=== PATIENT | male | born 1980 | race Caucasian/White ===

== ENCOUNTER 2017-11-15 14:50 | Day surgery (SDC) | payer OTHER ==
[2017-11-15] MEDS ORDERED: LR 1,000 ML IV ONE (15:26)
--- NOTE | 2017-11-15 16:05 | PDGENHP ---
History & Physical Chief Complaint: 37 year old male presents for evaluation of dysphagia History of Present Illness: 1 year hx of dysphagia to both solids and liquids. No heartburn currently. Not on PPI Pertinent Past, Social, Family History: PMHx; HSV. SoHx: Former smoker Relevant Physical Exam: HEENT: anicteric sclera. Cv: RRR +s1s2. lungs: CTAB. Abd: soft, nt, + BS Cardiorespiratory Assessment: ASA 2
[2017-11-15] MEDS ORDERED: PROPOFOL/EMULSION 500 MG/50 ML BOTTLE IV ONE (16:12)
[2017-11-15] MEDS ORDERED: ALBUTEROL 3 ML DEYVIAL IH PRN (16:14)
[2017-11-15] MEDS ORDERED: ONDANSETRON 4 MG/2 ML VIAL IVP PRN (16:14)
[2017-11-15] MEDS ORDERED: INDOMETHACIN 50 MG SUPP PR PRN (16:14)
[2017-11-15] MEDS ORDERED: NALOXONE HCL 0.4 MG/ML INJ IVP PRN (16:14)
--- NOTE | 2017-11-15 16:14 | PDANEPAE ---
ANE History of Present Illness EGD ANE Past Medical History - Cardiovascular History Hx Hypertension: No - Pulmonary History Hx COPD: No Hx Asthma/Reactive Airway Disease: No Hx Sleep Apnea: No ANE Review of Systems Review of Systems: - Exercise capacity Exercise capacity: >=4 METS ANE Patient History - Allergies Allergies/Adverse Reactions: Penicillins Allergy (Verified 11/15/17 15:13) - Home Medications Home Medications: Acyclovir [Zovirax 400 mg (*)] PRN 11/15/17 [Last Taken 10/16/17] - NPO status NPO Since - Liquids (Date): 11/15/17 NPO Since - Liquids (Time): 07:00 NPO Since - Solids (Date): 11/15/17 NPO Since - Solids (Time): 05:00 ANE Labs/Vital Signs - Vital Signs Blood Pressure: 126/83 Heart Rate: 55 Respiratory Rate: 16 O2 Sat (%): 97 Height: 182.88 cm Weight: 79.379 kg ANE Physical Exam - Airway Neck exam: FROM Mallampati Score: Class 2 - Pulmonary Pulmonary: clear to auscultation - Cardiovascular Cardiovascular: regular rate and rhythym - ASA Status ASA Status: I ANE Anesthesia Plan Anesthesia Plan: GA with mask
[2017-11-15] MEDS ORDERED: NS 500 ML IV SCH (16:15)
--- NOTE | 2017-11-15 16:57 | POSTANESTH ---
Post Anesthetic Evaluation Cardiovascular Status: Normal, Stable Respiratory Status: Similar to Pre-op Cond. Level of Consciousness/Mental Status: Alert and Oriented Pain Control: Adequate, Prn Tx Ordered Nausea/Vomiting Control: Adequate, Prn Tx Ordered Complications Possibly Related to Anesthesia: None Noted
--- NOTE | 2017-11-15 17:14 | GIREPORT ---
[facility] Surgical Services - Endoscopy Department Patient Name: Octavio Coffey Procedure Date: 11/15/2017 1:57 PM Patient Type: Outpatient Attending MD/ ER Physician: Shawn Sandoval MD Procedure: Upper GI endoscopy Indications: Dysphagia Patient Profile: 37 year old male presents for evaluation of dysphagia. Providers: Shawn Sandoval MD Medicines: Monitored Anesthesia Care Complications: No immediate complications. Estimated blood loss: Minimal. Description of Procedure: After obtaining informed consent, the endoscope was passed under direct vision. Throughout the procedure, the patient's blood pressure, pulse, and oxygen saturations were monitored continuously. The Endoscope was intro duced through the mouth, and advanced to the second part of duodenum. The [facility] er GI endoscopy was accomplished without difficulty. The patient tolerated th e procedure well. Findings: Mucosal changes including ringed esophagus and longitudinal furrows wer e found in the entire esophagus. Several biopsies were obtained in the mi ddle third of the esophagus with cold forceps for histology. A TTS dilator w as passed through the scope. Dilation with a 15-16.5-18 mm balloon dilator was performed to 18 mm a the GE junction and pulld through the esophagus. A large hiatal hernia was present. Patchy mildly erythematous mucosa was found in the gastric body and in the gastric antrum. Biopsies were taken with a cold forceps for histology. The examined duodenum was normal. Estimated Blood Loss: Estimated blood loss was minimal. Post Op Diagnosis: - Esophageal mucosal changes suspicious for eosinophilic esophagitis. Dilated. - Large hiatal hernia. - Hiatal hernia. - Erythematous mucosa in the gastric body and antrum. Biopsied. - Normal examined duodenum. - Several biopsies were obtained in the middle third of the esophagus. - Etiology? Suspect eosinophilic esophagitis? Await biopsy results. Recommendation: - Discharge patient to home (with escort). - Resume previous diet. - Continue present medications. - Await pathology results. - Follow up in office in 6 weeks. - Thank you for allowing me to participate in the care of your patient. Attending Participation: I personally performed the entire procedure. Shawn Sandoval MD Shawn Sandoval MD 11/15/2017 5:14:34 PM This report has been signed electronicallyShawn Sandoval MD Number of Addenda: 0 Note Initiated On: 11/15/2017 1:57 PM [email or web address]
[2017-11-15 17:54] VITALS: BP 131/89
== END 2017-11-15 18:05 | disposition home or self-care (01) ==
LOC: FSGY 14:50
PROVIDERS: ATTEND Internal Medicine Gastroenterology
DX: K20.0 Eosinophilic esophagitis (principal); K44.9 Diaphragmatic hernia without obstruction or gangrene
CPT/HCPCS: 43249; C1726; J2704